=== PATIENT | female | born 1990 | race Caucasian/White ===

== ENCOUNTER 2016-06-02 14:58 | Emergency (ER) ==
[2016-06-02 15:03] VITALS: BP 122/75
--- NOTE | 2016-06-02 15:21 | PROVIDER DOCUMENTATION ---
HPI-Rash/Wound/ReCheck - General Source: patient - History of Present Illness-Dermatology Location: reports: other (R buttocks) Quality: reports: painful Severity: reports: mild Onset/Duration: reports: unsure Timing: reports: still present, getting worse Context/Associated Symptoms: reports: other (abscess) Identifiable cause?: No Exposure: reports: unknown cause Locality of Occurance: Home Similar Symptoms Previously?: Yes Recently seen or treated by another doctor?: No <Josefa Kirkland - Last Filed: 06/02/16 15:18> <Cesar Hogan - Last Filed: 06/02/16 15:39> - General Chief Complaint: Abscess Stated Complaint: ABSCESS ON BUTT Time Seen by Provider: 06/02/16 15:18 Allergies/Adverse Reactions: Allergies Allergy/AdvReac Type Severity Reaction Status Date / Time No Known Allergies Allergy Verified 03/21/14 22:27 Home Medications: Home Medication List Medication Instructions Recorded Confirmed Last Taken Type Acetaminophen with Codeine 1 each PO Q6H PRN PRN #14 tablet 03/21/14 Unknown Rx [Tylenol with Codeine #3 Tablet] Amoxicillin 875 mg PO BID #20 tablet 03/21/14 Unknown Rx Azithromycin [Zithromax Tri-Chao] 500 mg PO DAILY 03/21/14 03/21/14 Unknown History Acetaminophen with Codeine 1 each PO Q6H PRN PRN #20 tablet 06/02/16 Unknown Rx [Tylenol with Codeine #3 Tablet] Sulfamethoxazole/Tmp D.s. [Septra 1 each PO BID #30 tablet 06/02/16 Unknown Rx Ds] Review of Systems - Adult - REVIEW OF SYSTEMS - ADULT Constitutional: reports: no symptoms reported Eyes: reports: no symptoms reported Ears, Nose, Mouth & Throat: reports: no symptoms reported Cardiovascular: reports: no symptoms reported Respiratory: reports: no symptoms reported Gastrointestinal: reports: no symptoms reported Genitourinary: reports: no symptoms reported Musculoskeletal: reports: no symptoms reported Integumentary: reports: other (R buttock abscess). denies: hives, itching Neurological: reports: no symptoms reported Psychiatric: reports: no symptoms reported Endocrine: reports: no symptoms reported Hematologic/Lymphatic: reports: no symptoms reported Allergic/Immunologic: reports: no symptoms reported All Other Systems: Reviewed and Negative <Josefa Kirkland - Last Filed: 06/02/16 15:18> Past History - Adult - PAST MEDICAL HISTORY-ADULT Review of Records: reports: Nursing Assessment Review, Medications Reviewed, Social history reviewed & non-contributory. Major Childhood Illnesses: reports: denies history Cardiovascular: reports: heart valve problem (MVP) Respiratory: reports: denies history Gastrointestinal: reports: denies history Obstetrical/Gynecological: reports: ovarian cysts Genitourinary: reports: denies history Musculoskeletal: reports: denies history Neurological: reports: headaches/migraines Endocrine/Immune: reports: denies history Other Conditions: reports: denies history - PRIOR SURGERIES/PROCEDURES Surgical/Procedure History: reports: reviewed, not pertinent - PRIOR HOSPITALIZATIONS Prior Hospitalizations: reports: for other non-related - IMMUNIZATION STATUS Childhood Immunizations: See Nurse Assessment Flu Vaccine: See Nurse Assessment - FAMILY HISTORY Family History: reviewed, not pertinent - SOCIAL HISTORY Smoking: cigarettes, less than 1 pack/day Provider spent 3-5 mins advising pt. on dangers of tobacco.: Discussed manners to quit use, and f/u contacts for add'l counseling. Substance Use: denies Living Situation: family <Josefa Kirkland - Last Filed: 06/02/16 15:18> Physical Exam-General - PHYSICAL EXAM-ADULT Initial Vital Signs Reviewed: Yes - CONSTITUTIONAL General Appearance: appears well, alert, no apparent distress - EYES Eyes: PERRL/EOMI, pink conjunctivae, fundi clear, no AV nicking - HEAD, EARS, NOSE, MOUTH & THROAT HENMT: normocephalic/atraumatic, moist mucous membranes, normal ENT inspection, TMs normal, pharynx normal - NECK Neck: non-tender, full range of motion, supple, normal inspection - RESPIRATORY Respiratory: chest non-tender, lungs clear, normal breath sounds, no pleuratic chest pain, no respiratory distress, no accessory muscle use - CARDIOVASCULAR Cardiovascular: normal peripheral pulses, regular rate, rhythm, no edema, no gallop, no JVD, no murmur - GASTROINTESTINAL (ABDOMEN) Abdominal Exam: normal bowel sounds, non tender, soft, no organomegaly, no pulsatile mass - LYMPHATIC Lymphatic: no adenopathy - MUSCULOSKELETAL Back Exam: normal inspection, no CVA tenderness, no vertebral tenderness Extremity: normal range of motion, non-tender, normal gait, normal inspection, no pedal edema, no calf tenderness, normal capillary refill - SKIN Integumentary: normal color, normal turgor, warm/dry, erythema (R buttocks), other (abscess to R buttocks) - NEUROLOGIC Neurologic: grossly normal - PSYCHIATRIC Psych/Mental Status: normal mood/affect, oriented x 3 <Josefa Kirkland - Last Filed: 06/02/16 15:18> Progress <Josefa Kirkland - Last Filed: 06/02/16 15:18> <Cesar Hogan - Last Filed: 06/02/16 15:39> - PLAN OF CARE/RESULTS Progress/Plan/Lab Results: Vital Signs - 24 hr 06/02/16 15:01 Temperature 98.2 F Pulse Rate 86 Respiratory 18 Rate Blood Pressure 122/75 O2 Sat by Pulse 100 Oximetry (Josefa Kirkland) Departure <Josefa Kirkland - Last Filed: 06/02/16 15:18> - Departure Time of Disposition Order: 15:38 Certified Medical Emergency: Emergent <Cesar Hogan - Last Filed: 06/02/16 15:39> - Departure DIAGNOSIS: Cellulitis of buttock, right Disposition: HOME 01 Condition: Stable Prescriptions: Acetaminophen with Codeine [Tylenol with Codeine #3 Tablet] 1 each PO Q6H PRN PRN #20 tablet PRN Reason: Pain Sulfamethoxazole/Tmp D.s. [Septra Ds] 1 each PO BID #30 tablet Referrals: Corey Romero [Primary Care Provider] - Attestation - Scribe Verification/Attestation Scribe:: Josefa Kirkland Acting as Scribe for:: Cesar Hogan Scribe documention review:: This chart was documented by a scribe and accurately reflects the service the provider performed and the decisions made by the provider. <Josefa Kirkland - Last Filed: 06/02/16 15:18> Physician Attestation
== END 2016-06-02 16:00 | disposition home or self-care (01) ==
LOC: P.ED 14:58
DX: L03.317 Cellulitis of buttock (principal); L02.31 Cutaneous abscess of buttock; M79.1 Myalgia; L53.9 Erythematous condition, unspecified; F17.210 Nicotine dependence, cigarettes, uncomplicated; Z71.6 Tobacco abuse counseling; Z87.42 Personal history of other diseases of the female genital tract
CPT/HCPCS: 99281